=== PATIENT | female | born 1925 | race Caucasian/White ===

== ENCOUNTER → 2016-08-23 | Day surgery (SDC) | payer OTHER, MEDICARE ==
[~2016-08-23] MED LIST: IOPAMIDOL (ISOVUE-300) 100 ML BTL IV ONE
--- NOTE | 2016-08-23 19:34 | IR ---
Antegrade Nephrostogram Nephrostomy Tube Removal Indication: Nephrostomy access was obtained for stone removal. UPJ stone has been removed. Known r esidual right inferior pole calyceal stone. Antegrade nephrostogram check and pull requested. Informed Consent: Obtained from the patient. Risks and benefits were discussed. Cross Cutting Measure: Patient's current list of medications including all known prescriptions, over -the-counters, herbals, and vitamin/mineral/dietary supplements are reviewed. Medications' name, dos age, frequency, and route of administration are confirmed. Patient is a non-smoker. Prophylactic Antibiotic: Cefazolin was not ordered and administered for antimicrobial prophylaxis be cause it was not medically necessary. VTE Prophylaxis: There is not an order for VTE prophylaxis to be given within 24 hours of the proced ure end time. VTE prophylaxis was not given because it was not medically necessary. Technique: Patient is placed in prone position. A "timeout" procedure was performed to identify the correct patient and the correct procedure. 1% Xylocaine was used for local anesthetic. All element s of maximal sterile barrier technique, including cap, mask, sterile gown, sterile gloves, large ster ile sheet, hand hygiene, and 2% chlorhexidine for cutaneous antisepsis, followed. Antegrade nephrostogram is performed through the existing nephrostomy tube. Multiple images show con secutive six extrinsic nondependent filling defects creeping along the medial wall of the ureter. Th ere are five of them that are in a string, with the sixth more cephalad to the five. These are not m obile, do not change despite of change in fluoroscopic angle, again attached to the medial wall of th e ureter, and are not radiopaque. They appear to be growths along the ureter. They do not cause any obstruction. Contrast flows readily from the upper pole calyx into the bladder . There is a moderate proximal ureteral stricture where the stone was, that persisted on all of the nep hrostogram images. The estimated degree of stricture is about 50 to 60%. Again, this is not contrib uting to any obstruction. After discussion with Dr. Zarco, decision was made to pull the nephrostomy tube, which was done. It is thought that the ureteral lesions may represent inflammatory lesions. Fluoroscopy: 1.3 minutes, 18 images. Impressions 1. No obstruction. 2. 50-60% proximal ureteral narrowing that is persistent, likely due to residual inflammation or sca r from the recent proximal ureteral stone, which is now absent. 3. Known residual stone in the lower pole calyx of the right kidney. 4. Six adherent medial wall ureteral lesions that are nonmobile and nonradiopaque. There are though t to represent inflammatory lesions. They do not cause any flow delay. 5. Nephrostomy tube removed. The above findings are discussed with Dr. Yulissa Zarco at the time of the exam.
== END | disposition home or self-care (01) ==
LOC: FIMAGING 14:35
PROVIDERS: ATTEND Specialist
PROC: BT11YZZ Fluoroscopy of Right Kidney using Other Contrast (ICD-10-PCS; principal; 2016-08-23)
PROC: 0TP5X0Z Removal of Drainage Device from Kidney, External Approach (ICD-10-PCS; principal; 2016-08-23)
DX: Z43.6 Encounter for attention to other artificial openings of urinary tract (principal)
CPT/HCPCS: Q9967